=== PATIENT | female | born 1975 | race Caucasian/White ===

== ENCOUNTER 2022-01-11 06:23 | Day surgery (SDC) | payer BC, MEDICAID ==
[2022-01-11] MEDS ORDERED: fentaNYL 250 MCG/5 ML SDV ONE ×2 (07:07→08:59)
[2022-01-11] MEDS ORDERED: Glycopyrrolate 0.2 MG/ML 5 ML MDV ONE (07:08)
[2022-01-11] MEDS ORDERED: Neostigmine Methylsulfate 1 MG/ML 5 ML Syringe ONE (07:08)
[2022-01-11] MEDS ORDERED: Succinylcholine 200 MG/10 ML MDV ONE (07:08)
[2022-01-11] MEDS ORDERED: Ondansetron 4 MG/2 ML SDV ONE (07:08)
[2022-01-11] MEDS ORDERED: Propofol 200 MG/20 ML SDV ONE (07:08)
[2022-01-11] MEDS ORDERED: Rocuronium 50 MG/5 ML Vial ONE (07:08)
[2022-01-11] MEDS: Celecoxib 200 MG Cap PO ONE (07:10)
[2022-01-11] MEDS: Acetaminophen 500 MG Tab PO ONE (07:11)
[2022-01-11] MEDS ORDERED: Dextrose 5%-Lactated Ringers 1,000 ML IV SCH (07:30)
[2022-01-11] MEDS: Lactated Ringers 1,000 ML IV SCH (08:05)
[2022-01-11] MEDS: cefOXitin 2 GM in Sodium Chloride 0.9% 50 ML IV ONE (08:29)
[2022-01-11] MEDS ORDERED: Ketorolac 30 MG/ML SDV ONE (09:28)
[2022-01-11] MEDS: Meropenem 500 MG SDV ONE (09:35)
[2022-01-11] MEDS: Bupivacaine 0.5%/EPINEPHrine 1:200,000 50 ML MDV ONE (09:35)
[2022-01-11] MEDS: Lidocaine 1% 50 ML MDV ONE (09:35)
[2022-01-11] MEDS: Sodium Chloride 0.9% Irrigation 1,000 ML Container IRR ONE (09:35)
[2022-01-11] MEDS: HYDROmorphone 2 MG Tab PO PRN (11:18)
== END 2022-01-11 12:20 | disposition home or self-care (01) ==
LOC: JP.SDS 06:23
PROVIDERS: ATTEND Surgery
DX: K95.09 Other complications of gastric band procedure (principal); E66.01 Morbid (severe) obesity due to excess calories; K43.2 Incisional hernia without obstruction or gangrene; E11.65 Type 2 diabetes mellitus with hyperglycemia; E03.9 Hypothyroidism, unspecified; E06.3 Autoimmune thyroiditis; E78.5 Hyperlipidemia, unspecified; F41.1 Generalized anxiety disorder; F33.1 Major depressive disorder, recurrent, moderate; Z98.84 Bariatric surgery status; Z90.49 Acquired absence of other specified parts of digestive tract; Z98.890 Other specified postprocedural states; Z90.711 Acquired absence of uterus with remaining cervical stump; Z79.84 Long term (current) use of oral hypoglycemic drugs; Z79.890 Hormone replacement therapy
CPT/HCPCS: 82947; 88300; 88305; A9270-GY; J0171; J0330; J0694; J1100; J1885; J2001; J2185; J2405; J2704; J2710; J2795; J3010; J3490; J7120